=== PATIENT | male | born 1960 | race Caucasian/White ===

== ENCOUNTER 2019-09-29 01:48 | Outpatient (CLI) | payer MEDICAID, SELFPAY ==
--- NOTE | 2019-09-29 13:28 | DI.CTLCSR_ITS ---
EXAM: CT CHEST LUNG CANCER SCREEN CLINICAL HISTORY: SCREENING FOR LUNG CA, FORMER SMOKER, Z87.891 TECHNIQUE: Imaging Protocol: Axial computed tomography images with coronal and sagittal reformatted images were created and reviewed COMPARISON: CT CT CHEST WO CNTRST from 03/07/2018 FINDINGS: Tracheobronchial tree: Patent where visualized. Mediastinum and Natasha: No dominant adenopathy or fluid collection. Pulmonary parenchyma: Marked emphysematous changes. Calcified granuloma in the right upper lobe. In filtrate in the left lingula. This may represent scarring, atelectasis or pneumonia. No focal conso lidating infiltrate. Lung Nodules: None. Pleura: No effusion or pneumothorax. Heart: The heart is not dilated. Moderate coronary artery calcification. No pericardial effusion. Aorta: Thoracic aorta non-dilated.Atherosclerosis. Upper abdomen: Unremarkable. Bones: Degenerative changes. Soft Tissues: Unremarkable. IMPRESSION: 1. No pulmonary nodules. 2. Marked emphysema. Lung RADS Cat 1 - Negative: No nodules and definitely benign nodules Lung-RADS 1.0 CATEGORIES: Category 0 - Prior chest CT exam(s) being located for comparison. Category 1 - Annual screening in 12 months. No nodules or definitely benign nodules. Category 2 - Annual screening in 12 months. Benign appearance. Nodules with low likelihood of becomin g active cancer. Category 3 - 6-month follow-up. Probably benign. Short-term follow-up suggested. Nodules with low lik elihood of becoming active cancer. Category 4A - 3-month follow-up and CT/PET if >8 mm in size. Suspicious finding. Findings which requi re additional testing. Category 4B - Findings which require additional testing and tissue sampling. Suspicious finding. C Added to Any of the Above - History of prior lung cancer screening. S Added to Any of the Above - Significant unexpected other finding. RADIATION DOSE DELIVERED: 91.12mGy.cm Total DLP DATA REPOSITORY: All CT scans at this facility are submitted to the National Radiology Data Registry (NRDR) Dose Index Registry (DIR) with the [employer] (A[employer]). RADIATION OPTIMIZATION: All CT scans at this facility use at least one of these dose optimization te chniques: automated exposure control; mA and/or kV adjustment per patient size (includes targeted exa ms where dose is matched to clinical indication); or iterative reconstruction.
== END 2019-09-29 02:08 ==
PROVIDERS: PCP Nurse Practitioner; Visit Provider Internal Medicine
DX: Z12.2 Encounter for screening for malignant neoplasm of respiratory organs (principal); Z87.891 Personal history of nicotine dependence
CPT/HCPCS: G0297

== ENCOUNTER 2020-09-05 03:56 | Outpatient (CLI) | payer MEDICAID, SELFPAY ==
--- NOTE | 2020-09-05 09:00 | DI.CT_ITS ---
Exam(s) CT CHEST HIGH RESOLUTION EXAM: CT CHEST HIGH RESOLUTION CLINICAL HISTORY: Assessment of large bullae for possible bullectomy,J34.9. TECHNIQUE: Multi planar reconstructions were performed. CONTRAST MATERIAL: None COMPARISON: CT CT CHEST LUNG CANCER SCREEN from 09/29/2019 FINDINGS: CHEST: LUNGS: Again noted are severe bilateral emphysematous changes. There are more bullae than remaining lung parenchyma. The left lung base there is a huge septated bulla which extends from the anterior t o the posterior pleural surface as well as the entire with of the hemithorax at this level. Anterior 2 this bulla is again noted previously described infiltrate which appears unchanged. There are no new infiltrates nor new ominous pulmonary nodules. Calcified granuloma in the lateral right u pper lobe is again noted. There are no pleural effusions. No significant focal findings in the trac hea and mainstem bronchi. MEDIASTINUM: There is no obvious hilar nor mediastinal adenopathy. Visualized thyroid unremarkable.No obvious axillary adenopathy CARDIAC: Heart size is normal. There is no pericardial effusion.Caliber of the thoracic aorta is wit hin normal limits. VISUALIZED UPPER ABDOMEN: OSSEOUS: No significant osseous lesions.. IMPRESSION: 1. Compared to the prior CT scan of September 2019 there is centrally no significant change. Again note d are severe emphysematous changes with dominant left lung base bulla again noted. Previously descri bed adjacent infiltrate or scarring in the left lung base is unchanged. 2. No new ominous pulmonary nodules nor pleural effusions nor obvious intrathoracic adenopathy. RADIATION DOSE DELIVERED: 351.29mGy.cm Total DLP DATA REPOSITORY: All CT scans at this facility are submitted to the National Radiology Data Registry (NRDR) Dose Index Registry (DIR) with the [employer] (ACR). RADIATION OPTIMIZATION: All CT scans at this facility use at least one of these dose optimization te chniques: automated exposure control; mA and/or kV adjustment per patient size (includes targeted exa ms where dose is matched to clinical indication); or iterative reconstruction.
[2020-09-05] MEDS: Albuterol HFA 18 GM 200 PUFF INH IH (14:21)
[2020-09-05] MEDS: Inhaler, Assist Device 1 EACH MC (14:21)
--- NOTE | 2020-09-06 15:36 | W.PFT ---
Date of service: 09/05/20 Time of Service: 12:50 Pulmonary Function Test Result Interpretation Spirometry: There is very severe airflow obstruction. Although there was a 15% increase in FEV1 with bronchodilator therapy there was only 110 cc increase so therefore does not meet criteria for a significant bronchodilator response. Lung Volumes: There is significant hyperinflation. There is significant air trapping. Diffusion Capacity: The diffusion is reduced. Airway Pressure: There is significant airway resistance as measured by sGaw Impression Pulmonary function testing consistent with very severe, nonreversible chronic obstructive pulmonary disease. Significantly reduced diffusion suggests emphysema in this setting. Clinical Correlation is recommended.
== END 2020-09-05 03:57 | disposition home or self-care (01) ==
LOC: RT 03:56
PROVIDERS: PCP Nurse Practitioner; Visit Provider Student in an Organized Health Care Education/Training Program
DX: J43.9 Emphysema, unspecified
CPT/HCPCS: 71250; 94060; 94726; 94729; 94762

== ENCOUNTER 2020-11-19 04:18 | Outpatient (CLI) | payer MEDICAID, SELFPAY ==
[2020-11-19 16:14] LABS: BE 0 mmol/L (-2-3); HCO3 24 mmol/L (22-26); pCO2 37 mmHg (35-45); pH 7.43 (7.35-7.45); pO2 76 mmHg (80-105); sO2 96 % (95-98); tCO2 21 mmol/L (23-27)
[2020-11-19 16:17] LABS: FIO2 21 %; Site Left Radial
== END 2020-11-19 04:19 | disposition home or self-care (01) ==
PROVIDERS: PCP Nurse Practitioner; Visit Provider Student in an Organized Health Care Education/Training Program
DX: J96.11 Chronic respiratory failure with hypoxia (principal); J98.4 Other disorders of lung
CPT/HCPCS: 82805; 36600

== ENCOUNTER 2021-02-03 16:17 | Inpatient (IN) | payer MEDICAID, SELFPAY ==
[2021-02-03] VITALS (41 sets, daily range): BP systolic 98–142; BP diastolic 67–112; PULSE 43–110; RESP 11–26; TEMP 36.7–37.2; O2SAT 95–99
--- NOTE | 2021-02-03 16:15 | DI.RAD_ITS ---
Exam(s) XR PORTABLE CHEST AP EXAM: XR PORTABLE CHEST AP CLINICAL HISTORY: Shortness of breath TECHNIQUE: 2D digital imaging was performed of the chest. Two images were obtained. AP views were o btained. COMPARISON: CR XR CHEST 2 VIEWS from 03/07/2018 CR XR CHEST 2 VIEWS from 03/07/2018 FINDINGS: MEDIASTINUM: Normal. HEART: Normal. PULMONARY VASCULATURE: Normal. LUNGS: Severe bullous disease is again noted. There is a calcified granuloma again seen in the right upper lobe. There is question of increased markings in the lung in the right perihilar region and a developing pneumonia cannot be excluded. PLEURAL SPACE: No pleural effusion or pneumothorax. BONE:Within normal limits for the patient's age. OTHER FINDINGS:Normal. IMPRESSION: Question of a developing infiltrate in the right mid lung. DATA REPOSITORY: RADIATION DOSE DELIVERED:
--- NOTE | 2021-02-03 16:15 | RT.EKG_ITS ---
APPROVED REPORT Exam: Resting ECG Reason for Exam: sob Patient Location: E HR:100 bpm ECG Measurements Heart Rate 100 AXIS VA 140 P 75 QRSd 84 QRS 68 QT 333 T 87 QTc 430 Conclusion Sinus tachycardia...rate> 99 Nonspecific T abnormalities, lateral leads...T <-0.10mV, I aVL V5 V6
[2021-02-03 16:39] LABS: Source Nasal/Nares
[2021-02-03 16:45] LABS: Abs Immature Grans 0.07 10^3/uL (0.0-0.06); Absolute Basophil Count 0.05 10^3/uL (0.0-0.2); Absolute Eosinophil Count 0.31 10^3/uL (0.0-0.7); Absolute Lymphocyte Count 1.27 10^3/uL (1.2-3.4); Absolute Monocyte Count 0.95 10^3/uL (0.1-0.8); Absolute Neutrophil Count 7.35 10^3/uL (1.2-6.7); Basophils % 0.5; Eosinophils % 3.1; HCT 50.2 % (40.0-50.0); HGB 16.9 g/dL (13.5-17.5); Immature Grans % 0.7; Lactate 1.7 mmol/L (0.6-1.4); Lymphocytes % 12.7; MCH 32.9 pg (27.0-33.0); MCHC 33.7 % (32.0-36.0); MCV 97.7 fL (80-95); MPV 8.8 fL (8.0-11.0); Monocytes % 9.5; Neutrophils % 73.5; Nucleated RBC 0 %; Platelet Count 286 10^3/uL (130-400); RBC 5.14 10^6/uL (4.36-5.78); RDW 12.7 % (11.8-14.1)
[2021-02-03 16:46] LABS: BE (Venous) 6 mmol/L (-2-3); HCO3 (Venous) 32 mmol/L (23-28); O2 Sat (Venous) 53 %; TCO2 (Venous) 28 mmol/L (24-29); pCO2 (Venous) 58 mmHg (41-51); pH (Venous) 7.35 (7.31-7.41); pO2 (Venous) 28 mmHg
[2021-02-03 17:11] LABS: ALT 26 U/L (16-63); AST 22 U/L (15-37); Alkaline Phosphatase 90 U/L (46-116); Anion Gap 6.9 mmol/L (3-11); BUN 9 mg/dL (7-18); Bilirubin, Total 0.6 mg/dL (0.2-1.0); CO2 31.1 mmol/L (21.0-32.0); CREATININE 0.8 mg/dL (0.70-1.30); Calcium 9.2 mg/dL (8.5-10.1); Chloride 100 mmol/L (98-107); Glucose 106 mg/dL (74-106); Magnesium 2.6 mg/dL (1.8-2.4); Potassium 3.8 mmol/L (3.5-5.1); Sodium 138 mmol/L (136-145); Total Protein 8.6 g/dL (6.4-8.2); Troponin I < 50 ng/L (<or=60)
[2021-02-03] MEDS: Normal Saline 250 ML IV (17:15)
--- NOTE | 2021-02-03 17:15 | ED.GENADUL_ITS ---
Discharge Plan Disposition Patient Disposition: [facility] INPATIENT Condition: Poor Discharge Details Clinical Impression: Acute exacerbation of chronic obstructive pulmonary disease (COPD), COVID-19 Admit Date/Time: 02/03/21 19:49 Admit Provider: Heber Jennings Attending Provider: Heber Jennings Primary Care Provider: Jocelynn Wadsworth ED Provider: Jordan Andersen Discharge Data Discharge Date/Time-TO BE ENTERED AT DEPARTURE: 02/03/21 21:32 Medical Decision Making Medical Records Medical records narrative: Patient presenting to the emergency department via EMS for chief complaint of shortness of breath. Patient states URI for the past 5 days which given his significant COPD has been placed upon steroids at home. Last dose was yesterday but today noted increased work of breathing and need of home oxygen during the day and not just at night which is his norm. Adding Machine Operator saw patient in the office and noted patient having significant hypoxia and patient was given 1 nebulizer for being sent to the emergency department. Upon arrival patient shows mild respiratory distress with increased work of breathing but vital signs are stable and patient not hypoxic. Exam otherwise unremarkable. Pending work-up patient given normal saline at 250 an hour, DuoNeb, and Solu-Medrol. Review of initial labs show that patient has compensated respiratory acidosis, nondiagnostic CBC, negative troponin, within defined limits D-dimer. Received back positive Covid test with negative influenza. Patient pending radiologist interpretation of portable chest x-ray but shows left lower lung bullae but no obvious focal patchy infiltrate noted on my interpretation. Discussed with patient findings of positive Covid and he states that he is fully vaccinated with Moderna and was due to receive booster today due to feeling ill missed appt. patient is agreeable to admission. Received V rad radiologist interpretation that does state concern for small patchy opacity that may be compatible with early infiltrate. This was communicated to the hospitalist. HPI General Mode of arrival: EMS . Date/Time Provider Initiated Documentation: 02/03/21 16:22 . Limitations to Documentation: no limitations . Information obtained by: patient and EMS . History of Present Illness 60 year old M presents to the emergency department with the chief complaint of Shortness of breath, described as moderate and similar to prior episodes, with intensity rated at 6. Quality is described as sharp, and is localized to the chest (Left-sided where bullbous was found). Patient reports no radiation. Patient started experiencing this day(s) (5) and it has been constant. No relieving factors improve symptom(s), No exacerbating factors reported . Patient notes nausea/vomiting. Patient did receive the following treatments prior to arrival, other (Albuterol and steroids) Related Data Home Medications Medication Instructions Recorded Confirmed Oxygen #1 ea 08/28/20 02/03/21 fluticasone fur. 100 mcg-umeclid 1 inh INHALATION DAILY 08/28/20 02/03/21 62.5 mcg-vilant 25 mcg inhalat.powder nicotine 7 mg/24 hr daily 1 patch TRANSDERMAL Q24H #30 ea 09/02/20 02/03/21 transdermal patch albuterol sulfate 90 mcg/actuation 2 puff INHALATION Q4H PRN #1 inh 01/06/21 02/03/21 aerosol inhaler ipratropium 0.5 mg-albuterol 3 mg 3 ml INHALATION QID PRN #360 ml 01/06/21 02/03/21 (2.5 mg base)/3 mL nebulization soln Previous Rx's Medication Instructions Recorded nicotine 7 mg/24 hr daily 1 patch TRANSDERMAL Q24H #30 ea 09/02/20 transdermal patch albuterol sulfate 90 mcg/actuation 2 puff INHALATION Q4H PRN #1 inh 01/06/21 aerosol inhaler ipratropium 0.5 mg-albuterol 3 mg 3 ml INHALATION QID PRN #360 ml 01/06/21 (2.5 mg base)/3 mL nebulization soln Allergies Allergy/AdvReac Type Severity Reaction Status Date / Time animal dander Allergy Unverified 09/02/20 09:49 varenicline [From Chantix] AdvReac Verified 02/03/21 15:31 General Stated Complaint: RespSymp RUTHIE: 2 Review of Systems Constitutional Constitutional: Reports chills, Reports fatigue, Reports fever(s) and Reports malaise Cardiovascular Cardiovascular: Reports as per HPI, Reports chest pain, Denies chest pain with activity, Denies syncope, Denies irregular heart rhythm, Denies palpitations and Reports dyspnea Respiratory Respiratory: Reports as per HPI, Denies change in phlegm color, Reports chest congestion, Reports cough (White phlegm), Denies hemoptysis, Reports pain with cough, Reports dyspnea and Reports wheezing Gastrointestinal Gastrointestinal: Denies abdominal pain, Denies diarrhea, Denies nausea and Denies vomiting Musculoskeletal Musculoskeletal: Denies joint swelling Integumentary/Breasts Skin/Breast: Denies rash Neurologic Neurologic: Denies syncope Psychiatric Psychiatric: Denies anxiety Endocrine Endocrine: Reports fatigue and Denies palpitations Allergic/Immunologic Allergic/Immunologic: Reports wheezing PFSH All Active Problems (Updated 02/04/21 @ 20:16 by Mio Abbott) Pneumonia (Acute) Acute exacerbation of chronic obstructive pulmonary disease (COPD) (Acute) COVID-19 (Acute) Chronic respiratory failure with hypoxia (Acute) Former smoker (Acute) Lung bullae (Acute) Bullous emphysema (Acute) Obstructive lung disease (Acute) Social History Smoking/Tobacco Use Status: Former Tobacco Use tobacco type: cigarettes Quit Date: 02/15/18 Pack-years: 52 Tobacco: How many years used: 35 Smoking risk assessment performed?: Yes Alcohol Intake: current Alcohol Intake frequency: a few times a week Drug use: Never Substance use type: does not use Communication Needs: Hard of Hearing Pets and animals: Yes (4 dogs) Do you feel safe at home: Yes Do you feel safe in your relationship?: Yes Exam Const General: cooperative, healthy appearing, comfortable, acute distress mild and re spiratory, not diaphoretic and not ill appearing Nutritional Appearance: average body habitus Orientation: alert, awake and oriented x3 Limitations: mental status not altered Neck Neck: normal visual inspection, full ROM, trachea midline, supple and no anterior neck swelling Thyroid: thyroid normal Resp Effort & Inspection: able to speak in complete sentences, cough Quality of cough: actively coughing, labored and uses accessory muscles Auscultation: clear to auscultation bilaterally, diminished lung sounds bilaterally in the lower lung linda and throughout and wheezes expiratory wheezes and upper bilaterally Cardio Jugular venous pressure: no JVD Palpation: normal PMI Rate: regular rate Rhythm: regular rhythm Heart Sounds: S1 normal, S2 normal, no click, no gallops, no murmurs and no rubs Pulses: radial pulses present bilaterally 2+ GI Inspection: normal to inspection Skin General skin exam: no rashes or lesions noted and no mottling Neuro General: patient alert, patient awake, patient oriented x3, tone normal and moves all extremities Course Vital Signs Vital signs: Vital Signs Temperature 36.7 C 02/03/21 16:25 Pulse 102 H 02/03/21 16:25 Respiratory Rate 19 02/03/21 16:25 Blood Pressure 131/77 02/03/21 16:25 Pulse Oximetry 98 02/03/21 16:25 Temperature 36.7 C 02/03/21 16:25 Temperature Source Skin 02/03/21 16:25 Pulse 99 H 02/03/21 16:46 Pulse 96 H 02/03/21 16:50 Respiratory Rate 18 02/03/21 16:50 Respiratory Effort Accessory Muscle Use 02/03/21 16:45 Blood Pressure 142/85 H 02/03/21 16:46 Blood Pressure Mean 99 02/03/21 16:46 Pulse Oximetry 98 02/03/21 16:50 Oxygen Delivery Method Nasal Cannula 02/03/21 16:30 Oxygen Flow Rate 1 02/03/21 16:30 Pain Level 1 02/03/21 16:25 Comment pain when coughing 02/03/21 16:25 Lab/Test Results Lab/Test Results: 02/03/21 16:50 Nasopharynx Influenza Types A,B Antigen - Pending 02/03/21 16:24 Blood Blood Culture - Pending 02/03/21 16:24 Blood Blood Culture - Pending Laboratory Tests Range/Units 02/03/21 02/03/21 02/03/21 16:25 16:25 16:25 WBC (4.4-10.8) 10^3/uL 10.00 RBC (4.36-5.78) 10^6/uL 5.14 Hgb (13.5-17.5) g/dL 16.9 Hct (40.0-50.0) % 50.2 H MCV (80-95) fL 97.7 H MCH (27.0-33.0) pg 32.9 MCHC (32.0-36.0) % 33.7 RDW (11.8-14.1) % 12.7 Plt Count (130-400) 10^3/uL 286 MPV (8.0-11.0) fL 8.8 Immature Gran % 0.7 Neutrophils % 73.5 Lymphocytes % 12.7 Monocytes % 9.5 Eosinophils % 3.1 Basophils % 0.5 Nucleated RBC % % 0 Absolute Neutrophils (1.2-6.7) 10^3/uL 7.35 H Absolute Lymphocytes (1.2-3.4) 10^3/uL 1.27 Absolute Monocytes (0.1-0.8) 10^3/uL 0.95 H Absolute Eosinophils (0.0-0.7) 10^3/uL 0.31 Absolute Basophils (0.0-0.2) 10^3/uL 0.05 VBG pH (7.31-7.41) 7.35 VBG pCO2 (41-51) mmHg 58 H VBG pO2 mmHg 28 VBG HCO3 (23-28) mmol/L 32 H VBG Total CO2 (24-29) mmol/L 28 VBG O2 Saturation % 53 VBG Base Excess (-2-3) mmol/L 6 H VBG Lactate (0.6-1.4) mmol/L 1.7 H COVID-19 Source Range/Units 02/03/21 16:39 WBC (4.4-10.8) 10^3/uL RBC (4.36-5.78) 10^6/uL Hgb (13.5-17.5) g/dL Hct (40.0-50.0) % MCV (80-95) fL MCH (27.0-33.0) pg MCHC (32.0-36.0) % RDW (11.8-14.1) % Plt Count (130-400) 10^3/uL MPV (8.0-11.0) fL Immature Gran % Neutrophils % Lymphocytes % Monocytes % Eosinophils % Basophils % Nucleated RBC % % Absolute Neutrophils (1.2-6.7) 10^3/uL Absolute Lymphocytes (1.2-3.4) 10^3/uL Absolute Monocytes (0.1-0.8) 10^3/uL Absolute Eosinophils (0.0-0.7) 10^3/uL Absolute Basophils (0.0-0.2) 10^3/uL VBG pH (7.31-7.41) VBG pCO2 (41-51) mmHg VBG pO2 mmHg VBG HCO3 (23-28) mmol/L VBG Total CO2 (24-29) mmol/L VBG O2 Saturation % VBG Base Excess (-2-3) mmol/L VBG Lactate (0.6-1.4) mmol/L COVID-19 Source Nasal/Nares PAWSS Have you Been Recently Intoxicated or Drunk Within the Last 30 days?: No Have you Ever Experienced Previous Episodes of Alcohol Withdrawal?: No Have you ever Experienced Withdrawal Seizures?: No Have you ever Experienced Delirium Tremens(DT)s?: No Have you ever undergone Alcohol Rehabilitation Treatment (i.e, inpt ot outpatient treatment programs)?: No Have you ever Experienced Blackouts?: No Have you ever Combined Alcohol with other Downers within the last 90 days?: No Have you ever Combined Alcohol with any other Substance of Abuse during the last 90 days?: No Positive Blood Alcohol level on Presentation? [PCS.BAL]: No Evidence of Increased Autonomic Activity (i.e. HR>120, tremor, sweating, agitation, nausea)?: No Result: 0
[2021-02-03] MEDS: Albuterol/Ipratropium 3 ML UPD VIAL UPD (17:16)
[2021-02-03] MEDS: methylPREDNISolone SUCC 125 MG VIAL IVP (17:16)
[2021-02-03 17:18] LABS: D-Dimer 302 ng/mlFEU (<500)
[2021-02-03 18:13] LABS: COVID-19 PCR POSITIVE (Negative)
--- NOTE | 2021-02-03 19:08 | DI.VRAD_ITS ---
PROCEDURE INFORMATION: Exam: XR Chest Exam date and time: 02/03/2021 4:30 PM Age: 60 years old Clinical indication: Other: Shortness of breath TECHNIQUE: Imaging protocol: XR of the chest. Views: 1 view. COMPARISON: CT CHEST HIGH RESOLUTION 09/05/2020 2:32 PM FINDINGS: Lungs: Coarse interstitial pulmonary markings and large bulla within the left lower lung zone compatible with known severe emphysematous. Small patchy opacity within the right middle lung zone may be compatible with early pulmonary infiltrates. Pleural spaces: Unremarkable. No pleural effusion. No pneumothorax. Heart/Mediastinum: Unremarkable. No cardiomegaly. Bones/joints: Unremarkable. IMPRESSION: 1. Small patchy opacity within the right middle lung zone may be compatible with early pulmonary infiltrates. 2. Coarse interstitial pulmonary markings and large bulla within the left lower lung zone compatible with known severe emphysematous. Dictated and Authenticated by: Hector Durbin MD. Ordering:DEJAH Ortega MD
--- NOTE | 2021-02-03 19:36 | HPE_ITS ---
Date of service: 02/03/21 Time of Service: 19:37 Assessment and Plan Assessment and plan (1) Acute exacerbation of chronic obstructive pulmonary disease (COPD): Status: Acute Assessment and plan: COPD exacerbation in setting of COVID. Hard to say how much each is contributing at this point, and there is also possible early infiltrate on CXR. I think it best that we treat all three. Will continue upd rafts and steroids for COPD; will use Remdesivir, steroids and baricitinib for COVID; and will add Rocephin for possible bacterial pneumonia. Patient smokes 3-4 cigarettes per day, will have low dose patch available prn. Reviewed ADs, requests Full Code. History of Present Illness History of Present Illness Chief Complaint: SOB and cough Narrative: 60 male with COPD, vaccinated x two. Reports 5 days URI (dry cough, runny nose, myalgias). Denies N/V or diarrhea, and no change in taste or smell. 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 Seen by Pulmonary today and O2 sat 82% reported, and sent to ER for eval. In ER findins of note for absence of fever; w heezing; white count 10, CXR with signs of known COPD, including large LLL bulla, and question early infiltrate RML. COVID is positive. VBG shows compensated respiratory acidosis with pH 7.35 and pCO2 58. Has received Duoneb and Solumedrol. Patient states he feels significantly improved but not to baseline. I was asked to evaluate for admission. Review of Systems All systems reviewed & are unremarkable except as noted in HPI and below PFSH All Active Problems Acute exacerbation of chronic obstructive pulmonary disease (COPD) (Acute) COVID-19 (Acute) Chronic respiratory failure with hypoxia (Acute) Former smoker (Acute) Lung bullae (Acute) Bullous emphysema (Acute) Obstructive lung disease (Acute) Social History Smoking/Tobacco Use Status: Former Tobacco Use tobacco type: cigarettes Quit Date: 02/15/18 Pack-years: 52 Tobacco: How many years used: 35 Smoking risk assessment performed?: Yes Alcohol Intake: current Alcohol Intake frequency: a few times a week Drug use: Never Substance use type: does not use Communication Needs: Hard of Hearing Pets and animals: Yes (4 dogs) Do you feel safe at home: Yes Do you feel safe in your relationship?: Yes Meds Allergies and Home Medications Allergies Allergy/AdvReac Type Severity Reaction Status Date / Time animal dander Allergy Unverified 09/02/20 09:49 varenicline [From Chantix] AdvReac Verified 02/03/21 15:31 Home Medications Medication Instructions Recorded Confirmed Type Oxygen #1 ea 08/28/20 02/03/21 History fluticasone fur. 100 mcg-umeclid 1 inh INHALATION DAILY 08/28/20 02/03/21 History 62.5 mcg-vilant 25 mcg inhalat.powder nicotine 7 mg/24 hr daily 1 patch TRANSDERMAL Q24H #30 ea 09/02/20 02/03/21 Rx transdermal patch albuterol sulfate 90 mcg/actuation 2 puff INHALATION Q4H PRN #1 inh 01/06/21 02/03/21 Rx aerosol inhaler ipratropium 0.5 mg-albuterol 3 mg 3 ml INHALATION QID PRN #360 ml 01/06/21 02/03/21 Rx (2.5 mg base)/3 mL nebulization soln Exam Narrative Exam Narrative: 135/88, 96, 36.7, 22, 95% (1L). HEENT atraumatic; neck supple; lungs sounds severely diminished; heart RRR; abdomen soft and NT; extremities w/o edema; neuro Ox3, moves all 4s Results Labs Result diagrams: 02/03/21 16:25 02/03/21 16:25 Labs: Laboratory Results - last 24 hr 02/03/21 02/03/21 02/03/21 16:25 16:25 16:25 WBC 10.00 RBC 5.14 Hgb 16.9 Hct 50.2 H MCV 97.7 H MCH 32.9 MCHC 33.7 RDW 12.7 Plt Count 286 MPV 8.8 Immature Gran % 0.7 Neutrophils % 73.5 Lymphocytes % 12.7 Monocytes % 9.5 Eosinophils % 3.1 Basophils % 0.5 Nucleated RBC % 0 Absolute Neutrophils 7.35 H Absolute Lymphocytes 1.27 Absolute Monocytes 0.95 H Absolute Eosinophils 0.31 Absolute Basophils 0.05 D-Dimer VBG pH VBG pCO2 VBG pO2 VBG HCO3 VBG Total CO2 VBG O2 Saturation VBG Base Excess VBG Lactate 1.7 H Sodium 138 Potassium 3.8 Chloride 100 Carbon Dioxide 31.1 Anion Gap 6.9 BUN 9 Creatinine 0.8 Estimated GFR/1.73 m2 >= 60.00 Glucose 106 Calcium 9.2 Magnesium 2.6 H Total Bilirubin 0.6 AST 22 ALT 26 Alkaline Phosphatase 90 Troponin I < 50 Total Protein 8.6 H Albumin 4.0 COVID-19 Source SARS-CoV-2 (PCR) 02/03/21 02/03/21 02/03/21 16:25 16:25 16:39 WBC RBC Hgb Hct MCV MCH MCHC RDW Plt Count MPV Immature Gran % Neutrophils % Lymphocytes % Monocytes % Eosinophils % Basophils % Nucleated RBC % Absolute Neutrophils Absolute Lymphocytes Absolute Monocytes Absolute Eosinophils Absolute Basophils D-Dimer 302 VBG pH 7.35 VBG pCO2 58 H VBG pO2 28 VBG HCO3 32 H VBG Total CO2 28 VBG O2 Saturation 53 VBG Base Excess 6 H VBG Lactate Sodium Potassium Chloride Carbon Dioxide Anion Gap BUN Creatinine Estimated GFR/1.73 m2 Glucose Calcium Magnesium Total Bilirubin AST ALT Alkaline Phosphatase Troponin I Total Protein Albumin COVID-19 Source Nasal/Nares SARS-CoV-2 (PCR) POSITIVE A* Last Vital Signs Temp 36.7 C 02/03/21 16:25 Pulse 102 H 02/03/21 19:00 Resp 22 02/03/21 19:20 BP 135/88 02/03/21 19:00 Pulse Ox 95 02/03/21 19:20 PAWSS Have you Been Recently Intoxicated or Drunk Within the Last 30 days?: No Have you Ever Experienced Previous Episodes of Alcohol Withdrawal?: No Have you ever Experienced Withdrawal Seizures?: No Have you ever Experienced Delirium Tremens(DT)s?: No Have you ever undergone Alcohol Rehabilitation Treatment (i.e, inpt ot outpatie nt treatment programs)?: No Have you ever Experienced Blackouts?: No Have you ever Combined Alcohol with other Downers within the last 90 days?: No Have you ever Combined Alcohol with any other Substance of Abuse during the last 90 days?: No Positive Blood Alcohol level on Presentation? [PCS.BAL]: No Evidence of Increased Autonomic Activity (i.e. HR>120, tremor, sweating, agita tion, nausea)?: No Result: 0
[2021-02-03] MEDS: Zolpidem 5 MG TAB PO (23:13)
[2021-02-03] MEDS: cefTRIAXone 1,000 MG in Normal Saline 50 ML 100 MG IVPB (23:14)
[2021-02-03] MEDS: Normal Saline Flush 10 ML SYR IVP (23:15)
[2021-02-04] MEDS: REMDESIVIR 200 MG in Normal Saline 250 ML 250 MG IVPB (00:56)
[2021-02-04] MEDS: Albuterol/Ipratropium 3 ML UPD VIAL UPD ×2 (00:57→06:08)
[2021-02-04] MEDS: methylPREDNISolone SUCC 40 MG VIAL IVP ×2 (00:57→08:36)
[2021-02-04] MEDS: Normal Saline Flush 10 ML SYR IVP ×2 (01:00→08:39)
[2021-02-04 01:27] VITALS: RESP 8
[2021-02-04 06:13] VITALS: BP 112/82; PULSE 91; RESP 16; TEMP 36.3; O2SAT 97
[2021-02-04] MEDS: Normal Saline 50 ML 200 ML (08:37)
[2021-02-04] MEDS: Enoxaparin 40 MG/0.4 ML SYR SC (08:38)
[2021-02-04 08:45] VITALS: BP 113/81; PULSE 86; RESP 18; TEMP 37.3; O2SAT 94
--- NOTE | 2021-02-04 09:13 | W.PULMCON ---
General Date Of Service Date of service: 02/04/21 Time of Service: 07:45 Reason for Consult: COVID COPD exacerbation Pneumonia Assessment and Plan Assessment and plan (1) Acute exacerbation of chronic obstructive pulmonary disease (COPD): Status: Acute (2) COVID-19: Status: Acute (3) Pneumonia: Status: Acute Assessment and plan: This is a 60 yo man with COPD, active smoking and a large bullae who was found to have COVID and a COPD exacerbation. He failed outpatient management of his exacerbation last wee and presented in extremis to clinic yesterday. His imaging finds a right sided pneumonia as well. I would treat him for both CAP and COVID. He did not have inflammatory markers drawn but was started on barcitinib. I will check his inflammatory markers to make a decision on whether he truly needs to barcitinib or not. It is fair to continue remdesivir. His steroids I will change so he is on a prednisone taper. He was not continued on his home inhaler regimen,so I will do that as well COPD Exacerbation - prednisone 60mg daily for 5 days, 50mg for 5 days, 40mg for 4 days, 30 mg for 4 days, 20mg for 3 days, 10mg for 3 days, 5mg for 3 days - Spiriva and Symbicort while admitted - switch back to [facility] upon discharge - Duonebs QID and albuterol prn Pneumonia - ceftriaxone, I added azithromycin (QTc is fine) - urine antigens for strep pneumo and legionella - would be cautious with airway clearance techniques given his very large bullae/high risk for PNX COVID - steroid regimen as above - continue remdesivir - inflammatory markers ordered - if not elevated can d/c barcitinib History of Present Illness Narrative: This is a 60 yo man with COPD, active smoking and a LLL large bullae who presented to my clinic yesterday afternoon for a scheduled follow up after being treated for a COPD exacerbation last week. He arrived and was found to be hypoxic to 82%, in moderate respiratory distress with diffuse wheezing. He received O2 therapy (3L) as well as a Duoneb (despite taking a home neb treatment an hour prior). He did seem to improve but given the failure of outpatient management and his acute clinical status I sent him to the ER for further evaluation. He was found to have COVID-19 as well as a right sided infiltrate on CXR. He did have contact with ill contacts (step son and children). He states one of the children got tested for COVID and it was negative. Today, he is looking and feeling much better than yesterday. He is down to 1 L NC (at home he uses 2L at night only). He still has a cough. Review of Systems All systems reviewed & are unremarkable except as noted in HPI and below PFSH All Active Problems (Updated 02/04/21 @ 09:22 by Rebecca Walton MD) Pneumonia (Acute) Acute exacerbation of chronic obstructive pulmonary disease (COPD) (Acute) COVID-19 (Acute) Chronic respiratory failure with hypoxia (Acute) Former smoker (Acute) Lung bullae (Acute) Bullous emphysema (Acute) Obstructive lung disease (Acute) Social History Smoking/Tobacco Use Status: Former Tobacco Use tobacco type: cigarettes Quit Date: 02/15/18 Pack-years: 52 Tobacco: How many years used: 35 Smoking risk assessment performed?: Yes Alcohol Intake: current Alcohol Intake frequency: a few times a week Drug use: Never Substance use type: does not use Communication Needs: Hard of Hearing Pets and animals: Yes (4 dogs) Do you feel safe at home: Yes Do you feel safe in your relationship?: Yes Visit Medication and Allergies Active Medications Generic Name Dose Route Start Last Admin Trade Name Freq PRN Reason Stop Dose Admin Acetaminophen 650 mg 02/03/21 19:53 Acetaminophen 325 Mg Tab PO Q4H PRN PRN Albuterol Sulfate 2.5 mg 02/03/21 19:51 Albuterol 2.5 Mg/3 Ml Inh Soln Vial UPD Q4H PRN PRN Albuterol/Ipratropium 3 ml 02/04/21 00:00 02/04/21 06:08 Albuterol/Ipratropium 3 Ml Upd Vial UPD 3 ml Q6H OBDULIO Administration Baricitinib 4 mg 02/04/21 08:30 02/04/21 08:38 Baricitinib 1 Mg Tab PO 02/17/21 08:31 4 mg DAILY OBDULIO Administration Dimethicone/Zinc Oxide 0 gm 02/03/21 19:49 Dony Protect Cream 142 Gm Tube TP PRN PRN Enoxaparin Sodium 40 mg 02/04/21 08:30 02/04/21 08:38 Enoxaparin 40 Mg/0.4 Ml Syr SC 40 mg Q24H OBDULIO Administration Ceftriaxone Sodium 1,000 mg/ 50 mls @ 100 mls/hr 02/03/21 22:00 02/04/21 00:30 Sodium Chloride IVPB Infused Q24H OBDULIO Infusion Remdesivir 100 mg/ Sodium 100 mls @ 100 mls/hr 02/05/21 00:00 Chloride IVPB 02/08/21 00:59 Q24H OBDULIO IV Miscellaneous Supplies 1 each 02/03/21 16:30 Iv Access IV DIRECTED BODULIO Methylprednisolone Sodium Succinate 40 mg 02/04/21 00:00 02/04/21 08:36 Methylprednisolone Succ 40 Mg Vial IVP 40 mg Q8H OBDULIO Administration Nicotine 7 mg 02/03/21 19:52 Nicotine 7 Mg/24 Hr Patch TD DAILY PRN PRN withdrawal Sodium Chloride 0 ml 02/03/21 16:24 02/04/21 08:39 Normal Saline Flush 10 Ml Syr IVP 10 ml PRN PRN Administration Zolpidem Tartrate 5 mg 02/03/21 19:53 02/03/21 23:13 Zolpidem 5 Mg Tab PO 5 mg HS PRN MAY REPEAT X1 PRN Administration Allergies animal dander Allergy (Unverified 09/02/20 09:49) varenicline [From Chantix] Adverse Reaction (Verified 02/03/21 15:31) Exam Const General: no acute distress Nutritional Appearance: cachectic [facility] Head: normocephalic Ears: external ears normal and no periauricular adenopathy General nose exam: nasal mucous membranes and turbinates normal Face and sinus: sinuses nontender Mouth: oropharynx normal and moist mucous membranes Teeth and gingiva: dentition normal Eyes General: appearance normal, both eyes and all related structures Pupils: PERRL Neck Neck: normal visual inspection and no lymphadenopathy Chest Chest: normal inspection of the chest Resp Effort & Inspection: normal respiratory effort Auscultation: diminished lung sounds on the left in the lower lung linda, no rales, no rhonchi and no wheezes Cardio Rate: regular rate Rhythm: regular rhythm Heart Sounds: S1 normal, S2 normal and no murmurs Pulses: radial pulses present bilaterally GI Inspection: normal to inspection Palpation: soft Skin General skin exam: no rashes or lesions noted Neuro General: patient alert, patient awake and patient oriented x3 Extrem General: no clubbing, cyanosis or edema Psych Mental Status: mental status grossly normal Affect: normal affect Attitude: cooperative Results Last Vital Signs Temp 37.3 C 02/04/21 08:45 Pulse 86 02/04/21 08:45 Resp 18 02/04/21 08:45 BP 113/81 02/04/21 08:45 Pulse Ox 94 02/04/21 08:45 Labs Result diagrams: 02/03/21 16:25 02/03/21 16:25 Labs: Laboratory Results - last 24 hr 02/03/21 02/03/21 02/03/21 16:25 16:25 16:25 WBC 10.00 RBC 5.14 Hgb 16.9 Hct 50.2 H MCV 97.7 H MCH 32.9 MCHC 33.7 RDW 12.7 Plt Count 286 MPV 8.8 Immature Gran % 0.7 Neutrophils % 73.5 Lymphocytes % 12.7 Monocytes % 9.5 Eosinophils % 3.1 Basophils % 0.5 Nucleated RBC % 0 Absolute Neutrophils 7.35 H Absolute Lymphocytes 1.27 Absolute Monocytes 0.95 H Absolute Eosinophils 0.31 Absolute Basophils 0.05 D-Dimer VBG pH VBG pCO2 VBG pO2 VBG HCO3 VBG Total CO2 VBG O2 Saturation VBG Base Excess VBG Lactate 1.7 H Sodium 138 Potassium 3.8 Chloride 100 Carbon Dioxide 31.1 Anion Gap 6.9 BUN 9 Creatinine 0.8 Estimated GFR/1.73 m2 >= 60.00 Glucose 106 Calcium 9.2 Magnesium 2.6 H Total Bilirubin 0.6 AST 22 ALT 26 Alkaline Phosphatase 90 Troponin I < 50 Total Protein 8.6 H Albumin 4.0 COVID-19 Source SARS-CoV-2 (PCR) 02/03/21 02/03/21 02/03/21 16:25 16:25 16:39 WBC RBC Hgb Hct MCV MCH MCHC RDW Plt Count MPV Immature Gran % Neutrophils % Lymphocytes % Monocytes % Eosinophils % Basophils % Nucleated RBC % Absolute Neutrophils Absolute Lymphocytes Absolute Monocytes Absolute Eosinophils Absolute Basophils D-Dimer 302 VBG pH 7.35 VBG pCO2 58 H VBG pO2 28 VBG HCO3 32 H VBG Total CO2 28 VBG O2 Saturation 53 VBG Base Excess 6 H VBG Lactate Sodium Potassium Chloride Carbon Dioxide Anion Gap BUN Creatinine Estimated GFR/1.73 m2 Glucose Calcium Magnesium Total Bilirubin AST ALT Alkaline Phosphatase Troponin I Total Protein Albumin COVID-19 Source Nasal/Nares SARS-CoV-2 (PCR) POSITIVE A*
[2021-02-04 12:00] LABS: C-Reactive Protein 1.58 mg/dL (0.0-0.3); LDH 167 U/L (85-227)
[2021-02-04 12:24] LABS: Ferritin 295 ng/mL (26-388)
[2021-02-04 13:47] VITALS: O2SAT 95
[2021-02-04] MEDS: Ipratropium/Albuterol 4 GM 120 PUFF INH IH ×2 (16:58→21:24)
--- NOTE | 2021-02-04 17:21 | W.PM.PROGNOT ---
Date of Service Date of service: 02/04/21 Time of Service: 17:21 Assessment and Plan Assessment and plan (1) Pneumonia: Status: Acute Assessment and plan: Continue ceftriaxone and azithromycin. Encourage patient to use incentive spirometer and Acapella. Continue prednisone along with scheduled Combivent inhaler and as needed use of an albuterol inhaler. I changed him from duo nebs to Combivent in light of his Covid infection. We will attempt to get a sputum culture and check on results of his urine strep antigen and Legionella studies. Patient is now down to 1 L/min per nasal cannula. If he continues to improve anticipate discharge in the next 24 to 48 hours. Case discussed with Dr. Rebecca Rodriguez Qualifiers: Pneumonia type: due to unspecified organism Laterality: right Lung location: middle lobe of lung Qualified Code(s): J18.9 - Pneumonia, unspecified organism (2) Acute exacerbation of chronic obstructive pulmonary disease (COPD): Status: Acute Assessment and plan: As above (3) COVID-19: Status: Acute Assessment and plan: Continue Remdesivir and Decadron. Discontinue baricitinib. Subjective Subjective Interval history since last seen: Patient was admitted last night with COPD exacerbation and mild COVID-19 infection. 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 He has had no fever or chills. No rigors. Cough is nonproductive. Patient has been vaccinated against SARS-CoV-2 x2 doses but has not received his booster yet. Patient was started on antibiotics including ceftriaxone and azithromycin and placed on his usual inhalers and was started on IV methylprednisolone along with Remdesivir and baricitinib. Methylprednisolone is been discontinued he has been placed on high-dose prednisone 60 mg daily. Inflammatory markers are not particularly high. His total white counts 10,000 with a mild increase in his neutrophils but no lymphocytopenia. His ferritin level is normal and his LFTs are normal as well as his D-dimer is normal. His SARS-CoV-2 nasal swab is positive. At this point I think it is more COPD exacerbation along with possible pneumonia. Chest x-ray showed a questionable developing infiltrate in the right midlung. Urine for Legionella and strep antigen are pending at this time. Overall the patient does feel improved but not yet back to his baseline. Exam Narrative Exam Narrative: Thin kapoor-haired middle-aged male who is sitting up in his bed watching TV in no acute respiratory distress. He is able to speak in complete paragraphs. However when I had him take deep breaths for his lung exam he did go into a paroxysm of coughing. Chest reveals scattered expiratory wheezes and rhonchi. Heart is regular rate and rhythm. Abdomen is soft nontender nondistended. Lower extremities without peripheral edema or cyanosis. Objective Last Vital Signs Temp 37.3 C 02/04/21 08:45 Pulse 86 02/04/21 08:45 Resp 18 02/04/21 08:45 BP 113/81 02/04/21 08:45 Pulse Ox 95 02/04/21 13:47 Laboratory Results - last 24 hr 02/03/21 02/03/21 02/03/21 16:25 16:25 16:39 Sodium 138 Potassium 3.8 Chloride 100 Carbon Dioxide 31.1 Anion Gap 6.9 BUN 9 Creatinine 0.8 Estimated GFR/1.73 m2 >= 60.00 Glucose 106 Calcium 9.2 Magnesium 2.6 H Ferritin 295 Total Bilirubin 0.6 AST 22 ALT 26 Alkaline Phosphatase 90 Lactate Dehydrogenase 167 Troponin I < 50 C-Reactive Protein 1.58 H Total Protein 8.6 H Albumin 4.0 COVID-19 Source Nasal/Nares SARS-CoV-2 (PCR) POSITIVE A* PAWSS Have you Been Recently Intoxicated or Drunk Within the Last 30 days?: No Have you Ever Experienced Previous Episodes of Alcohol Withdrawal?: No Have you ever Experienced Withdrawal Seizures?: No Have you ever Experienced Delirium Tremens(DT)s?: No Have you ever undergone Alcohol Rehabilitation Treatment (i.e, inpt ot outpatient treatment programs)?: No Have you ever Experienced Blackouts?: No Have you ever Combined Alcohol with other Downers within the last 90 days?: No Have you ever Combined Alcohol with any other Substance of Abuse during the last 90 days?: No Positive Blood Alcohol level on Presentation? [PCS.BAL]: No Evidence of Increased Autonomic Activity (i.e. HR>120, tremor, sweating, agitation, nausea)?: No Result: 0
[2021-02-04 17:33] VITALS: BP 115/73; PULSE 83; RESP 18; TEMP 36.6; O2SAT 94
--- NOTE | 2021-02-04 17:49 | INITIAL_ITS ---
- If Service Date Differs Date of service: 02/04/21 Time of Service: 17:49 Care Management Initial Assess REASON FOR HOSPITALIZATION:: COVID, COPD PAST MEDICAL HISTORY/PAST SURGICAL HISTORY:: All Active Problems. Acute exacerbation of chronic obstructive pulmonary disease (COPD) (Acute). COVID-19 (Acute). Chronic respiratory failure with hypoxia (Acute). Former smoker (Acute). Lung bullae (Acute). Bullous emphysema (Acute). Obstructive lung disease (Acute) PREVIOUS FUNCTIONAL STATUS/SOCIAL/FAMILY SUPPORTS:: Wesley lives in [place] with his , Nayla and his step son. 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 He is indpendent at baseline with no community supports needed. CURRENT FUNCTIONAL STATUS:: CM was not able to meet with Wesley in person, due to Covid 19, but CM talked to him over the phone. He was pleasant and engaged in conversation. He asked CM about his home O2, stating that he believes he may need different equipment. CM will relay this to [place], who can assist him with this. He stated that he has 2.5 L of O2 at baseline, provided by [employer]. CM will continue to follow. ADVANCE DIRECTIVES:: None on file. Has patient been provided with info about the portal/API?: Yes Did the patient sign up for the portal?: No CODE STATUS:: Full Code INSURANCE COVERAGE / FINANCIAL ISSUES:: [employer] CURRENT HOME/COMMUNITY SERVICES/EQUIPMENT:: [employer], Home O2, 2.5L. PRIMARY CARE PHYSICIAN:: Jocelynn Wadsworth POTENTIAL DISCHARGE NEEDS:: Evaluations for further needs, follow up appointments. PATIENT/FAMILY EDUCATION NEEDS:: Review discharge instructions regarding activity levels and medications, discussion of self care needs including ask me three. ANTICIPATED BARRIERS TO DISCHARGE:: None identified. TRANSPORTATION:: Via private vehicle by his . PLAN:: Anticipate Wesley will return home when medically cleared by MD. He will be driven home via private vehicle. He will follow up with his PCP and discharge plan of care. CM will continue to follow.
[2021-02-04] MEDS: cefTRIAXone 1 GM/50 ML BAG IVPB (21:24)
[2021-02-04] MEDS: Budesonide/Formoterol 80/4.5 6.9 GM 60 PUFF INH IH (21:25)
[2021-02-04 21:37] VITALS: BP 123/82; PULSE 74; RESP 20; TEMP 36.9; O2SAT 96
[2021-02-04 22:48] LABS: Legionella Ag Detection Urine Negative (Negative)
[2021-02-05] MEDS: Zolpidem 5 MG TAB PO ×2 (00:35→22:01)
[2021-02-05] MEDS: Azithromycin 250 MG TAB 500 MG PO (08:55)
[2021-02-05] MEDS: Normal Saline Flush 10 ML SYR IVP (08:56)
[2021-02-05] MEDS: predniSONE 20 MG TAB 60 MG PO (08:56)
[2021-02-05] MEDS: Enoxaparin 40 MG/0.4 ML SYR SC (08:56)
[2021-02-05 09:00] VITALS: BP 112/67; PULSE 73; RESP 18; TEMP 36.4; O2SAT 95
[2021-02-05] MEDS: Ipratropium/Albuterol 4 GM 120 PUFF INH IH ×3 (11:21→21:04)
[2021-02-05] MEDS: Budesonide/Formoterol 80/4.5 6.9 GM 60 PUFF INH IH ×2 (11:21→21:05)
[2021-02-05] MEDS: Tiotropium Bromide-Respimat 10 PUFF INH 2 PUFF IH (11:22)
[2021-02-05 11:29] VITALS: O2SAT 93
--- NOTE | 2021-02-05 11:30 | CMPROGNOTE_ITS ---
- If Service Date Differs Date of service: 02/05/21 Time of Service: 11:30 Care Management Progress Note S/O: CM spoke to Wesley over the phone, as he remains on Covid 19 precautions. He reported that he would like a portable O2 device, as the one he has at home is bulky. CM inquired about this with [place], who stated that his settings would need to be changed, if indicated, which would likely be out patient. Currently he only requires O2 at night. CM suggested he call [facility], as he reported he has empty tanks at home that need to be filled. He is followed by Dr. Newell in the community. CM will continue to follow. A: Wesley is a 60 year old male admitted to [facility] on 02/03/21 with Covid, COPD. P: Anticipate Wesley will return home when medically cleared by . He will be driven home via private vehicle. He will follow up with his PCP and discharge plan of care. CM will continue to follow.
--- NOTE | 2021-02-05 12:11 | W.PM.PROGNOT ---
Date of Service Date of service: 02/05/21 Time of Service: 12:12 Assessment and Plan Assessment and plan (1) Pneumonia: Status: Acute Assessment and plan: Continue ceftriaxone and azithromycin for treatment of his pneumonia. Continue Combivent inhaler 4 times a day along with as needed albuterol inhaler. Continue high-dose prednisone 60 mg daily in addition to his Remdesivir for his COPD. Baricitinib was discontinued yesterday. We will repeat his inflammatory markers tomorrow. Anticipate discharge within the next 24 to 48 hours if he continues to show his current trajectory of improvement. Qualifiers: Pneumonia type: due to unspecified organism Laterality: right Lung location: middle lobe of lung Qualified Code(s): J18.9 - Pneumonia, unspecified organism (2) Acute exacerbation of chronic obstructive pulmonary disease (COPD): Status: Acute Assessment and plan: As above (3) COVID-19: Status: Acute Assessment and plan: Continue Remdesivir and Decadron. Continue to encourage him use incentive spirometer and Acapella. Patient has not proning but he is trying to lie on his side when he is in bed otherwise he tries to sit up in the chair. Subjective Subjective Interval history since last seen: Mr. Mahmood is feeling better today. He still has a moist cough but nonproductive. No fever or chills. Pulse oximetry on room air is running 89 to 90%. At home he only uses nocturnal oxygen. Denies any chest pain. Appetite is still only fair. Exam Narrative Exam Narrative: Thin middle-aged male alert and oriented x3. HEENT is unremarkable Neck without JVD Lungs with some fine end expiratory wheezes diffusely Heart regular rate and rhythm Extremities without peripheral edema Objective Last Vital Signs Temp 36.4 C L 02/05/21 09:00 Pulse 73 02/05/21 09:00 Resp 18 02/05/21 09:00 BP 112/67 02/05/21 09:00 Pulse Ox 93 02/05/21 11:29 Laboratory Results - last 24 hr 02/03/21 02/04/21 16:25 14:15 Ferritin 295 Urine Legionella Ag Negative PAWSS Have you Been Recently Intoxicated or Drunk Within the Last 30 days?: No Have you Ever Experienced Previous Episodes of Alcohol Withdrawal?: No Have you ever Experienced Withdrawal Seizures?: No Have you ever Experienced Delirium Tremens(DT)s?: No Have you ever undergone Alcohol Rehabilitation Treatment (i.e, inpt ot outpatient treatment programs)?: No Have you ever Experienced Blackouts?: No Have you ever Combined Alcohol with other Downers within the last 90 days?: No Have you ever Combined Alcohol with any other Substance of Abuse during the last 90 days?: No Positive Blood Alcohol level on Presentation? [PCS.BAL]: No Evidence of Increased Autonomic Activity (i.e. HR>120, tremor, sweating, agitation, nausea)?: No Result: 0
[2021-02-05 16:44] VITALS: BP 110/78; PULSE 76; RESP 18; TEMP 36.8; O2SAT 94
[2021-02-05] MEDS: cefTRIAXone 1 GM/50 ML BAG IVPB (21:03)
[2021-02-05 21:15] VITALS: BP 119/77; PULSE 72; RESP 18; TEMP 37.2; O2SAT 93
[2021-02-05 23:03] LABS: Streptococcus Pneumoniae Ag, U Negative (Negative)
[2021-02-06 07:28] LABS: Abs Immature Grans 0.04 10^3/uL (0.0-0.06); Absolute Basophil Count 0.02 10^3/uL (0.0-0.2); Absolute Eosinophil Count 0.04 10^3/uL (0.0-0.7); Absolute Lymphocyte Count 2.96 10^3/uL (1.2-3.4); Absolute Monocyte Count 0.83 10^3/uL (0.1-0.8); Basophils % 0.2; Eosinophils % 0.4; HCT 41.5 % (40.0-50.0); HGB 14.2 g/dL (13.5-17.5); Immature Grans % 0.4; Lymphocytes % 26.3; MCH 32.6 pg (27.0-33.0); MCHC 34.2 % (32.0-36.0); MCV 95.2 fL (80-95); MPV 9.2 fL (8.0-11.0); Monocytes % 7.4; Neutrophils % 65.3; Nucleated RBC 0 %; Platelet Count 259 10^3/uL (130-400); RBC 4.36 10^6/uL (4.36-5.78); RDW 12.9 % (11.8-14.1); RDW-SD 45.7 fL; WBC 11.24 10^3/uL (4.4-10.8)
[2021-02-06 07:30] LABS: Absolute Neutrophil Count 7.34 10^3/uL (1.2-6.7)
[2021-02-06 08:02] LABS: ALT 26 U/L (16-63); AST 23 U/L (15-37); Albumin 3.1 g/dL (3.4-5.0); Alkaline Phosphatase 61 U/L (46-116); Anion Gap 7.1 mmol/L (3-11); BUN 17 mg/dL (7-18); Bilirubin, Total 0.3 mg/dL (0.2-1.0); CO2 28.9 mmol/L (21.0-32.0); CREATININE 0.7 mg/dL (0.70-1.30); Chloride 101 mmol/L (98-107); Ferritin 281 ng/mL (26-388); Glucose 100 mg/dL (74-106); Potassium 3.8 mmol/L (3.5-5.1); Sodium 137 mmol/L (136-145); Total Protein 6.8 g/dL (6.4-8.2)
[2021-02-06 08:09] LABS: D-Dimer 152 ng/mlFEU (<500)
[2021-02-06 08:29] LABS: C-Reactive Protein 0.41 mg/dL (0.0-0.3); LDH 145 U/L (85-227)
[2021-02-06] MEDS: Budesonide/Formoterol 80/4.5 6.9 GM 60 PUFF INH IH (08:45)
[2021-02-06] MEDS: Ipratropium/Albuterol 4 GM 120 PUFF INH IH ×3 (08:46→15:51)
[2021-02-06] MEDS: Tiotropium Bromide-Respimat 10 PUFF INH 2 PUFF IH (08:47)
[2021-02-06] MEDS: predniSONE 20 MG TAB 60 MG PO (09:51)
[2021-02-06] MEDS: Azithromycin 250 MG TAB 500 MG PO (09:51)
[2021-02-06] MEDS: Enoxaparin 40 MG/0.4 ML SYR SC (09:51)
[2021-02-06 09:55] VITALS: BP 99/69; PULSE 70; RESP 16; TEMP 36.9; O2SAT 93
--- NOTE | 2021-02-06 09:57 | CMPROGNOTE_ITS ---
- If Service Date Differs Date of service: 02/06/21 Time of Service: 09:57 Care Management Progress Note S/O: CM was unable to meet with Fantasma in person due to his Covid isolation but was able to speak with him on the phone. Fantasma stated that he is feeling much better and hopes to be able to go home soon. He did inform CM that he is on home oxygen and that he needs a delivery of portable tanks from [facility]. He had been unable to reach [facility] to schedule the delivery, however today he learned that they cannot deliver tanks until next , 02/13/21. Fantasma informed CM that he would not be able to go home without the oxygen. CM contacted Keny in [place] and learned that Fantasma has a concentrator and only has oxygen prescribed at night, so he will still have oxygen available and discharge need not be delayed. A: Wesley is a 60 year old male admitted to [facility] on 02/03/21 with Covid, COPD. P: Anticipate Wesley will return home with a resumption of home oxygen when medically cleared by . He will be driven home via private vehicle. He will follow up with his PCP and discharge plan of care. CM will continue to follow.
[2021-02-06 15:50] VITALS: BP 122/75; PULSE 82; RESP 16; TEMP 36.4; O2SAT 94
--- NOTE | 2021-02-06 16:21 | W.PM.PROGNOT ---
Date of Service Date of service: 02/06/21 Time of Service: 16:21 Objective Last Vital Signs Temp 36.4 C L 02/06/21 15:50 Pulse 82 02/06/21 15:50 Resp 16 02/06/21 15:50 BP 122/75 02/06/21 15:50 Pulse Ox 94 02/06/21 15:50 Laboratory Results - last 24 hr 02/04/21 02/06/21 02/06/21 14:15 06:30 06:30 WBC 11.24 H RBC 4.36 Hgb 14.2 D Hct 41.5 MCV 95.2 H MCH 32.6 MCHC 34.2 RDW 12.9 Plt Count 259 MPV 9.2 Immature Gran % 0.4 Neutrophils % 65.3 Lymphocytes % 26.3 Monocytes % 7.4 Eosinophils % 0.4 Basophils % 0.2 Nucleated RBC % 0 Absolute Neutrophils 7.34 H Absolute Lymphocytes 2.96 Absolute Monocytes 0.83 H Absolute Eosinophils 0.04 Absolute Basophils 0.02 D-Dimer Sodium 137 Potassium 3.8 Chloride 101 Carbon Dioxide 28.9 Anion Gap 7.1 BUN 17 D Creatinine 0.7 Estimated GFR/1.73 m2 >= 60.00 Glucose 100 Calcium 9.0 Ferritin 281 Total Bilirubin 0.3 AST 23 ALT 26 Alkaline Phosphatase 61 Lactate Dehydrogenase 145 C-Reactive Protein 0.41 H Total Protein 6.8 Albumin 3.1 L Ur Strep pneumoniae Ag Negative 02/06/21 06:30 WBC RBC Hgb Hct MCV MCH MCHC RDW Plt Count MPV Immature Gran % Neutrophils % Lymphocytes % Monocytes % Eosinophils % Basophils % Nucleated RBC % Absolute Neutrophils Absolute Lymphocytes Absolute Monocytes Absolute Eosinophils Absolute Basophils D-Dimer 152 Sodium Potassium Chloride Carbon Dioxide Anion Gap BUN Creatinine Estimated GFR/1.73 m2 Glucose Calcium Ferritin Total Bilirubin AST ALT Alkaline Phosphatase Lactate Dehydrogenase C-Reactive Protein Total Protein Albumin Ur Strep pneumoniae Ag PAWSS Have you Been Recently Intoxicated or Drunk Within the Last 30 days?: No Have you Ever Experienced Previous Episodes of Alcohol Withdrawal?: No Have you ever Experienced Withdrawal Seizures?: No Have you ever Experienced Delirium Tremens(DT)s?: No Have you ever undergone Alcohol Rehabilitation Treatment (i.e, inpt ot outpatient treatment programs)?: No Have you ever Experienced Blackouts?: No Have you ever Combined Alcohol with other Downers within the last 90 days?: No Have you ever Combined Alcohol with any other Substance of Abuse during the last 90 days?: No Positive Blood Alcohol level on Presentation? [PCS.BAL]: No Evidence of Increased Autonomic Activity (i.e. HR>120, tremor, sweating, agitation, nausea)?: No Result: 0
--- NOTE | 2021-02-06 17:57 | DSE_ITS ---
Date of service: 02/06/21 Time of Service: 17:57 DS: Diagnosis Discharge Diagnosis (1) Pneumonia: Status: Acute Asessment and Plan: Rx Augmentin 875 mg bid x 5d, azithromycin 500 mg daily x 5 days, prednisone 20 mg x 3 tabs daily x 5 days. cont. home nebulizers q4hr prn along w/ Trelegy inhaler. Use oxygen prn for SPO2 below 90%. (2) Acute exacerbation of chronic obstructive pulmonary disease (COPD): Status: Acute Asessment and Plan: as above (3) COVID-19: Status: Acute Asessment and Plan: patient to remain in quarrantine for 10 days. patient to receive his booster in 3 to 4 weeks from recovery. Discharge Plan Disposition Patient Disposition: HOME Condition: Improving Discharge Details Reason For Visit: COVID, COPD Admit Date/Time: 02/03/21 19:49 Admit Provider: Heber Jennings Attending Provider: Heber Jennings Primary Care Provider: [facility] Hospital Course: Patient was admitted from Dr. Walton's office after he was seen in follow up for COPD exacerbation. See H&P for details. He was found to have COVID-19 and to have a RML consolidation c/w CAP. His inflammatory markers were not really elevated. D-dimer was normal (302 and repeat was 152), CRP 1.58 which declined to 0.41. Ferritin was normal at 295 and remained normal at 281. LDH and transaminases were all normal and remained normal. CBC demonstrated normal total WBC 10,000 w/out a lymphocytopenia. CXR demonstrated a questionable developing RML infiltrate. CT scan of chest was not done. Patient was put on Rocephin 1 gm daily and azithromycin 500 mg daily along w/ prednisone 60 mg daily and Remdesivir and Baricitinib. The Baricitinib was stopped. He was put on Symbicort and Spiriva (substituted for his Trelegy). His oxygen needs were easily met w/ low flow regular nasal cannula at 1 lpm and he was weaned off oxygen and for the last 24 hours of his hospitalization he was on room air. He will be discharged home on prednisone 60 mg daily for the next 5 days along w/ azithromycin 500 mg daily x 5 days and Augmentin 875 mg bid x 5 days. he should follow up w/ both his PCP and Dr. Walton next week. The patient tried to avoid discharge from the hospital by claiming that he has no oxygen tanks at home. However, he has a concentrator at home and should only need tanks for leaving the house. His [employer] company is suppose to come out next week w/ more oxygen tanks. For now, he does not need to leave the house and with him being positive for COVID-19 he should not be leaving the house anyway. Home Meds and New Rx's Prescriptions: New azithromycin 500 mg tablet 500 mg PO DAILY 5 Days Qty: 5 RF: 0 amoxicillin-pot clavulanate [Augmentin] 875-125 mg tablet 1 tab PO BID Qty: 10 RF: 0 prednisone 20 mg tablet 60 mg PO DAILY 5 Days Qty: 15 RF: 0 Continued Trelegy Ellipta 100-62.5-25 mcg blister with device 1 inh inhalation DAILY RF: 0 nicotine 7 mg/24 hr patch 24 hour 1 patch transdermal Q24H Qty: 30 RF: 5 (DME) Oxygen Tank See Rx Instructions .ROUTE .MEDSUPPLY Qty: 1 RF: 0 albuterol sulfate 90 mcg/actuation HFA aerosol inhaler 2 puff inhalation Q4H PRN (Reason: shortness of breath or wheezing) Qty: 1 RF: 3 ipratropium-albuterol 0.5 mg-3 mg(2.5 mg base)/3 mL solution for nebulization 3 ml inhalation QID PRN (Reason: shortness of breath or wheezing) Qty: 360 RF: 3 Discharge Instructions Instructions: Chronic Lung Disease and Infection Prevention (DC), Energy Conservation Techniques (DC), Nutrition Guidelines for People with COPD (DC), COVID-19 and Chronic Health Conditions (DC) Additional Instructions: Finish all of your antibiotics and prednisone. Call Dr. Walton's office for follow up next week. Call your primary customer care representative's office for follow up next week. Get your COVID 19 booster vaccine in 3 to 4 weeks. Stand Alone Forms: Nursing Discharge Form Referrals: Jocelynn Wadsworth [Primary Care Provider] - (call the office tomorrow for follow up) Rebecca Walton MD [ [facility] STAFF PHYSICIAN] - (call the office next week for follow up) Activity:: Activity as Tolerated Equipment/Supplies:: No Equipment Needed Diet:: Normal Diet Discharge Orders Discharge Orders: Discharge Order (Routine); Ordered 02/06/21 Ordered By: Mio Abbott Discharge Data Discharge Date/Time-TO BE ENTERED AT DEPARTURE: 02/06/21 19:08 DS: Summary Time Spent with Patient providing and/or coordinating discharge services: Less than 30 minutes Status at Discharge Functional status at discharge: independent ambulation Overall status at discharge: patient is back to baseline Mental Status: mental status grossly normal Speech and Movement: speech and movement normal Mood: congruent mood Affect: normal affect Exam Narrative Exam Narrative: Elderly white male who is sitting up in bed; not wearing oxygen. not using accessory muscles Lungs: scattered end expiratory wheezes; no rhochi or rales Heart: RRR Abdomen; soft, nondistended. Extremities: no edema Psych Mental Status: mental status grossly normal Speech and Movement: speech and movement normal Mood: congruent mood Affect: normal affect DS: Data Vitals/I&O Vitals and I&O: Vital Signs Temperature 36.4 C L 02/06/21 15:50 Temperature Source Tympanic 02/06/21 15:50 Pulse 82 02/06/21 15:50 Pulse Rhythm Regular 02/06/21 16:17 Pulse 89 02/03/21 20:40 Respiratory Rate 16 02/06/21 15:50 Respiratory Effort 02/06/21 16:17 Respiratory Depth Normal 02/06/21 16:17 Respiratory Pattern Normal 02/06/21 16:17 Blood Pressure 122/75 02/06/21 15:50 Blood Pressure Mean 92 02/03/21 20:30 Pulse Oximetry 94 02/06/21 15:50 Oxygen Delivery Method Room Air 02/06/21 15:50 Oxygen Flow Rate 0 02/06/21 15:50 Pain Level 0 02/06/21 15:50 Comment pain when coughing 02/03/21 16:25 Intake & Output 02/05/21 02/06/21 02/06/21 23:59 11:59 23:59 Intake Total 50 / 160 100 / 100 Balance 50 / 160 100 / 100 Intake: IV 50 / 160 100 / 100 Other: Urine Appearance Clear Comment pt independent to restroom Voiding Methods Toilet Data Completed and Pending Labs on day of discharge: Labs from last 24 hours 02/06/21 02/06/21 02/06/21 06:30 06:30 06:30 WBC 11.24 H RBC 4.36 Hgb 14.2 D Hct 41.5 MCV 95.2 H MCH 32.6 MCHC 34.2 RDW 12.9 Plt Count 259 MPV 9.2 Immature Gran % 0.4 Neutrophils % 65.3 Lymphocytes % 26.3 Monocytes % 7.4 Eosinophils % 0.4 Basophils % 0.2 Nucleated RBC % 0 Absolute Neutrophils 7.34 H Absolute Lymphocytes 2.96 Absolute Monocytes 0.83 H Absolute Eosinophils 0.04 Absolute Basophils 0.02 D-Dimer 152 Sodium 137 Potassium 3.8 Chloride 101 Carbon Dioxide 28.9 Anion Gap 7.1 BUN 17 D Creatinine 0.7 Estimated GFR/1.73 m2 >= 60.00 Glucose 100 Calcium 9.0 Ferritin 281 Total Bilirubin 0.3 AST 23 ALT 26 Alkaline Phosphatase 61 Lactate Dehydrogenase 145 C-Reactive Protein 0.41 H Total Protein 6.8 Albumin 3.1 L Ur Strep pneumoniae Ag 02/04/21 14:15 WBC RBC Hgb Hct MCV MCH MCHC RDW Plt Count MPV Immature Gran % Neutrophils % Lymphocytes % Monocytes % Eosinophils % Basophils % Nucleated RBC % Absolute Neutrophils Absolute Lymphocytes Absolute Monocytes Absolute Eosinophils Absolute Basophils D-Dimer Sodium Potassium Chloride Carbon Dioxide Anion Gap BUN Creatinine Estimated GFR/1.73 m2 Glucose Calcium Ferritin Total Bilirubin AST ALT Alkaline Phosphatase Lactate Dehydrogenase C-Reactive Protein Total Protein Albumin Ur Strep pneumoniae Ag Negative Preliminary micro results at discharge 02/03/21 17:52 Blood Culture - Preliminary Blood NO GROWTH 48 HOURS 02/03/21 17:40 Blood Culture - Preliminary Blood NO GROWTH 48 HOURS PFSH All Active Problems (Updated 02/04/21 @ 20:16 by Mio Abbott) Pneumonia (Acute) Acute exacerbation of chronic obstructive pulmonary disease (COPD) (Acute) COVID-19 (Acute) Chronic respiratory failure with hypoxia (Acute) Former smoker (Acute) Lung bullae (Acute) Bullous emphysema (Acute) Obstructive lung disease (Acute) Social History Smoking/Tobacco Use Status: Former Tobacco Use tobacco type: cigarettes Quit Date: 02/15/18 Pack-years: 52 Tobacco: How many years used: 35 Smoking risk assessment performed?: Yes Alcohol Intake: current Alcohol Intake frequency: a few times a week Drug use: Never Substance use type: does not use Communication Needs: Hard of Hearing Pets and animals: Yes (4 dogs) Do you feel safe at home: Yes Do you feel safe in your relationship?: Yes
== END 2021-02-06 19:08 | disposition home or self-care (01) | DRG 193 ==
LOC: ER 20:49 → MS 21:35
PROVIDERS: Internal Medicine; Student in an Organized Health Care Education/Training Program; Admitting Provider General Practice; Emergency Provider Nurse Practitioner Family; PCP Nurse Practitioner; Visit Provider General Practice
DX: J18.9 Pneumonia, unspecified organism (principal); U07.1 COVID-19; J96.11 Chronic respiratory failure with hypoxia; J43.8 Other emphysema; F17.210 Nicotine dependence, cigarettes, uncomplicated
CPT/HCPCS: 36410; 36415; 80053; 82805; 87040; 87449; 87635; 93005; 94640; 96361; 96374; 99285; J1650; 71045; 82728; 83605; 83615; 83735; 84484; 85025; 85379; 86140; 87899; 93010; 99222; 99232; 99238; 99284; J0696; J2930; J3490; J7512; J7620

== ENCOUNTER 2021-11-21 01:51 | Outpatient (CLI) | payer MEDICARE, SELFPAY ==
--- NOTE | 2021-11-21 16:36 | W.PFT ---
Date of service: 11/21/21 Time of Service: 13:34 Pulmonary Function Test Result Requesting Provider Isabelle Indications: Respiratory Failure Note: 6 Minute Walk Test Distance walked: 200 feet Desaturations: None on 2 LPM Heart rate changes: Tachycardic throughout (103-113bpm) Recommendation: 2LPM O2 needed for exertion. Rebecca Walton MD Pulmonary & Critical Care Medicine Clinical Correlation therefore is recommended.
== END 2021-11-21 01:52 | disposition home or self-care (01) ==
LOC: RT 01:51
PROVIDERS: PCP Nurse Practitioner; Visit Provider Student in an Organized Health Care Education/Training Program
DX: J96.11 Chronic respiratory failure with hypoxia (principal); R00.0 Tachycardia, unspecified
CPT/HCPCS: 94618

== ENCOUNTER → 2023-12-14 12:49 | Outpatient (BNVA) | payer MEDICARE, SELFPAY | PROVIDERS: PCP Nurse Practitioner; Referring Provider Nurse Practitioner; Visit Provider Physician Assistant Surgical | DX: J43.9 Emphysema, unspecified (principal); J96.11 Chronic respiratory failure with hypoxia; F17.200 Nicotine dependence, unspecified, uncomplicated | CPT/HCPCS: 99443 ==

== ENCOUNTER → 2024-12-12 14:07 | Outpatient (BNVA) | payer MEDICARE, SELFPAY | PROVIDERS: PCP Nurse Practitioner; Referring Provider Nurse Practitioner; Visit Provider Physician Assistant Surgical | DX: J96.11 Chronic respiratory failure with hypoxia (principal); J43.9 Emphysema, unspecified; J44.9 Chronic obstructive pulmonary disease, unspecified; Z87.891 Personal history of nicotine dependence | CPT/HCPCS: 99214 ==